=== PATIENT | female | born 1955 ===

== ENCOUNTER 2019-09-22 08:38 | Outpatient (CLI) | payer OTHER | END 2019-09-22 08:48 | disposition home or self-care (01) | LOC: SONOGRAMA 08:38 | DX: E04.2 Nontoxic multinodular goiter (principal) ==

== ENCOUNTER 2021-04-08 07:37 | Outpatient (CLI) | payer OTHER | END 2021-04-08 08:59 | disposition home or self-care (01) | LOC: SONOGRAMA 07:37 | PROVIDERS: ATTEND Pathology Anatomic Pathology & Clinical Pathology | DX: E04.2 Nontoxic multinodular goiter (principal) ==

== ENCOUNTER 2022-10-23 09:07 | Outpatient (CLI) | payer OTHER | END 2022-10-23 09:11 | disposition home or self-care (01) | LOC: SONOGRAMA 09:07 | PROVIDERS: ATTEND Pathology Anatomic Pathology & Clinical Pathology | DX: D34 Benign neoplasm of thyroid gland (principal); E04.9 Nontoxic goiter, unspecified; E04.2 Nontoxic multinodular goiter ==

== ENCOUNTER 2024-02-11 07:22 | Outpatient (CLI) | payer OTHER | END 2024-02-11 07:35 | disposition home or self-care (01) | LOC: SONOGRAMA 07:22 | PROVIDERS: ATTEND Pathology Anatomic Pathology & Clinical Pathology | DX: D44.0 Neoplasm of uncertain behavior of thyroid gland (principal); E07.89 Other specified disorders of thyroid; E04.2 Nontoxic multinodular goiter ==

== ENCOUNTER 2024-09-01 10:07 | Outpatient (CLI) | payer OTHER | END 2024-09-01 10:08 | disposition home or self-care (01) | LOC: SONOGRAMA 10:07 | PROVIDERS: ATTEND Pathology Anatomic Pathology & Clinical Pathology | DX: D34 Benign neoplasm of thyroid gland (principal); E07.89 Other specified disorders of thyroid; E04.2 Nontoxic multinodular goiter ==